=== PATIENT | female | born 1965 ===

== ENCOUNTER 2020-09-04 10:11 | Emergency (ER) | payer SELFPAY ==
--- NOTE | 2020-09-04 10:33 | EDM.PDOC ---
ED HPI GENERAL MEDICAL PROBLEM - General Chief Complaint: Genitourinary Problem Stated Complaint: POSSIBLE KIDNEY INFECTION Time Seen by Provider: 09/04/20 10:14 Source of Information: Reports: Patient History Limitations: Reports: No Limitations - History of Present Illness INITIAL COMMENTS - FREE TEXT/NARRATIVE: HISTORY AND PHYSICAL: History of present illness: Patient is a 55-year-old female who presents to the emergency room with complaints of right low back pain, dysuria and hematuria. She states yesterday she had some discomfort with voiding and noticed dull right-sided low back pain. She has had increased frequency and urgency over the past 24 hours. Prior to arrival she had hematuria. She has been trying to take [id number] supplements and cranberry juice without any relief. Patient denies any fever, chills, headache, change in vision, syncope or near syncope. Denies any chest pain, back pain, shortness of breath or cough. Denies any abdominal pain, nausea, vomiting, diarrhea, constipation. Denies any chance of , hysterectomy. Patient has been eating and drinking appropriately. Review of systems: As per history of present illness and below otherwise all systems reviewed and negative. Past medical history: As per history of present illness and as reviewed below otherwise noncontributory. Surgical history: As per history of present illness and as reviewed below otherwise noncontributory. Social history: See social history for further information Family history: As per history of present illness and as reviewed below otherwise noncontributory. Physical exam: General: Well developed and well nourished 55 year old female. Alert and orientated x 3. Nontoxic in appearance and in no acute distress. Vital signs are stable and have been reviewed by me. Nursing notes were reviewed. HEENT: Atraumatic, normocephalic, pupils equal and reactive bilaterally, negative for conjunctival pallor or scleral icterus, mucous membranes moist, trachea midline. No drooling or trismus noted. No meningeal signs. No hot potato voice noted. Abdomen: Soft, nondistended, nontender. Negative for masses or hepatosplenomegaly. Negative for costovertebral tenderness. Skin: Intact, warm, dry. No lesions or rashes noted. Extremities: Atraumatic, moves all extremities per self without difficulty or deficits. Neurovascular unremarkable. Neuro: Awake, alert, oriented. Motor and sensory unremarkable throughout. Exam nonfocal. Notes: Patient declined wanting any blood work at this time due to insurance/costs. I think this is reasonable. Patient's urine doesn't show a UTI. I have spoken with the patient/caregiver and discussed today's findings, in addition to providing specific details for plan of care. She does not want any labs or further evaluation of the dysuria. Reassessment at the time of disposition demonstrates that the patient is in no acute distress. BP is elevated, states she hasn't taken anything for her blood pressure in 3-4 years, but states she does plan on seeing/establishing with a PCP to get a "full check up". She does not want me to address her elevated BP readings, states "it could be all the stress I'm under too". The patient is stable for discharge, counseling was provided and we discussed in great detail signs and symptoms that would prompt them to return to the Emergency Department. Medication, follow up and supportive care measures were reviewed and discussed. Voices understanding and is agreeable to plan of care. Denies any further questions or concerns at this time. Diagnostics: UA Therapeutics: None Impression: Dysuria Plan: 1. Today your urine shows no evidence of UTI. Due to your symptoms, will give short course of abx. 2. Increase your oral fluids. Take the medication as prescribed. 3. We encourage you to follow up with your primary care provider and/or recommended specialist in the next few days for re-evaluation and further care/management. If your symptoms should worsen, new symptoms develop or any of the signs and symptoms we discussed should arise please return to the emergency room or call 911 (if needed). Definitive disposition and diagnosis as appropriate pending reevaluation and review of above. right flank Pain Score (Numeric/FACES): 5 - Related Data Allergies Allergy/AdvReac Type Severity Reaction Status Date / Time Sulfa (Sulfonamide Allergy Other Verified 09/04/20 10:36 Antibiotics) Home Meds: Home Meds Acetaminophen [Tylenol] mg PO ASDIRECTED PRN 09/04/20 [History] Ciprofloxacin HCl [Cipro] 500 mg PO BID 5 Days #10 tablet 09/04/20 [Rx] Multivitamin [Multivitamins] 1 each PO DAILY 09/04/20 [History] Phenazopyridine [Pyridium] 100 mg PO TID PRN 2 Days #6 tab 09/04/20 [Rx] Past Medical History Other Musculoskeletal History: Neck surgery Other Psychiatric History: unable to assess, poss OD and suicide attempt - Past Surgical History Other HEENT Surgeries/Procedures: Adnoidectomy ED ROS GENERAL - Review of Systems Review Of Systems: Comprehensive ROS is negative, except as noted in HPI. ED EXAM, RENAL/ - Physical Exam Exam: See Below (See dictation) Course - Vital Signs Last Recorded V/S: Last Vital Signs Temp 99.0 F 09/04/20 10:30 Pulse Resp 17 09/04/20 10:30 BP 186/102 H 09/04/20 10:30 Pulse Ox 98 09/04/20 10:30 - Orders/Labs/Meds Labs: Laboratory Tests 09/04/20 Range/Units 10:30 Urine Color YELLOW Urine Appearance CLEAR Urine pH 5.5 (5.0-8.0) Ur Specific [place] >= 1.030 (1.001-1.035) Urine Protein NEGATIVE (NEGATIVE) mg/dL Urine Glucose (UA) NEGATIVE (NEGATIVE) mg/dL Urine Ketones NEGATIVE (NEGATIVE) mg/dL Urine Occult Blood NEGATIVE (NEGATIVE) Urine Nitrite NEGATIVE (NEGATIVE) Urine Bilirubin NEGATIVE (NEGATIVE) Urine Urobilinogen 1.0 (<2.0) EU/dL Ur Leukocyte Esterase NEGATIVE (NEGATIVE) Departure - Departure Time of Disposition: 10:46 Disposition: Home, Self-Care 01 Clinical Impression: Dysuria - Discharge Information Prescriptions: Ciprofloxacin HCl [Cipro] 500 mg PO BID 5 Days #10 tablet Phenazopyridine [Pyridium] 100 mg PO TID PRN 2 Days #6 tab PRN Reason: Dysuria Instructions: Dysuria Referrals: PCP,None [Primary Care Provider] - Forms: ED Department Discharge Additional Instructions: The following information is given to patients seen in the emergency department who are being discharged to home. This information is to outline your options for follow-up care. We provide all patients seen in our emergency department with a follow-up referral. The need for follow-up, as well as the timing and circumstances, are variable depending upon the specifics of your emergency department visit. If you don't have a primary care physician on staff, we will provide you with a referral. We always advise you to contact your personal physician following an emergency department visit to inform them of the circumstance of the visit and for follow-up with them and/or the need for any referrals to a consulting specialist. The emergency department will also refer you to a specialist when appropriate. This referral assures that you have the opportunity for follow-up care with a specialist. All of these measure are taken in an effort to provide you with optimal care, which includes your follow-up. Under all circumstances we always encourage you to contact your private physician who remains a resource for coordinating your care. When calling for follow-up care, please make the office aware that this follow-up is from your recent emergency room visit. If for any reason you are refused follow-up, please contact the [facility] Emergency Department at and asked to speak to the emergency department charge nurse. [facility] [address] [place] [id number] [place] [id number] Thank you for choosing the [facility] emergency department in [place] for your medical needs today. It was a pleasure caring for you. Today you were seen in the emergency department for urinary symptoms. 1. Today your urine shows no evidence of UTI. Due to your symptoms, will give short course of abx. 2. Increase your oral fluids. Take the medication as prescribed. 3. We encourage you to follow up with your primary care provider and/or recommended specialist in the next few days for re-evaluation and further care/management. If your symptoms should worsen, new symptoms develop or any of the signs and symptoms we discussed should arise please return to the emergency room or call 911 (if needed). Sepsis Event Note (ED) - Focused Exam Vital Signs: Vital Signs Temp Resp BP Pulse Ox 09/04/20 10:30 99.0 F 17 186/102 H 98
[2020-09-04 10:56] VITALS: BP 165/83; PULSE 105
== END 2020-09-04 10:56 | disposition home or self-care (01) ==
LOC: MW.ED 10:11
DX: R30.0 Dysuria (principal); M54.5 Low back pain; R31.9 Hematuria, unspecified; Z88.2 Allergy status to sulfonamides
CPT/HCPCS: 81003; 99283

== ENCOUNTER 2025-08-26 10:48 | Emergency (ER) | payer SELFPAY ==
[2025-08-26] MEDS ORDERED: Sodium Chloride 0.9% 2.5 ML Syringe FLUSH PRN (11:32)
[2025-08-26] MEDS ORDERED: Sodium Chloride 0.9% 10 ML Syringe FLUSH PRN (11:32)
[2025-08-26 11:54] LABS: BASOPHILS ABSOLUTE AUTO 0.05 K/uL (0.00-0.20); BASOPHILS PERCENT AUTO 0.5 % (0.0-1.0); EOSINOPHILS ABSOLUTE AUTO 0.41 K/uL (0.00-0.45); EOSINOPHILS PERCENT AUTO 4.5 % (0.0-6.0); IMMATURE GRAN ABSOLUTE AUTO 0.03 K/uL (0.00-0.05); IMMATURE GRAN PERCENT AUTO 0.3 % (0.0-0.4); LYMPHOCYTES ABSOLUTE AUTO 1.33 K/uL (1.00-4.80); LYMPHOCYTES PERCENT AUTO 14.5 % (24.0-44.0); MEAN PLATELET VOLUME 8.4 fL (9.4-12.3); MONOCYTES ABSOLUTE AUTO 0.61 K/uL (0.00-0.80); MONOCYTES PERCENT AUTO 6.7 % (0.0-8.0); NEUTROPHILS ABSOLUTE AUTO 6.74 K/uL (1.80-7.70); NEUTROPHILS PERCENT AUTO 73.5 % (41.0-71.0); NRBC ABSOLUTE 0.00 K/uL (0.00-0.02); NRBC PERCENT 0.0 /100WBC (0.0-0.2); PLATELET COUNT,PLT 340 K/uL (150-400); RED BLOOD CELL COUNT 3.98 M/uL (4.10-5.30); WHITE BLOOD CELL COUNT,WBC 9.17 K/uL (3.9-11.3)
[2025-08-26] MEDS: Labetalol 100 MG/20 ML MDV IVPUSH ONE (11:59)
[2025-08-26 12:20] LABS: A/G RATIO 0.9 (0.9-1.6); ALANINE AMINOTRANSFERASE,ALT 19.0 IU/L (14-63); ASPARTATE AMNIOTRANSFERASE,AST 17.0 IU/L (15-37); BILIRUBIN TOTAL 0.4 mg/dL (0.2-1.0); BLOOD UREA NITROGEN,BUN 17.0 mg/dL (7.0-18.0); CARBON DIOXIDE,CO2 26.8 mmol/L (21.0-32.0); CHLORIDE,CL 104.0 mmol/L (98-107); CREATININE 0.9 mg/dL (0.6-1.0); EST CRCL DRUG DOSING (CG) 52.36 mL/min; GLUCOSE RANDOM 103.0 mg/dL (74-106); POTASSIUM,K 4.0 mmol/L (3.5-5.1); PROTEIN TOTAL,TP 7.4 g/dL (6.4-8.2); SODIUM,NA 139.0 mmol/L (136-145)
[2025-08-26 12:32] LABS: ESTIMATED GFR 73.0 mL/min (>60)
[2025-08-26 14:12] VITALS: BP 167/88; PULSE 86
== END 2025-08-26 14:18 | disposition home or self-care (01) ==
LOC: MW.ED 10:48
DX: I10 Essential (primary) hypertension (principal); F17.210 Nicotine dependence, cigarettes, uncomplicated; Z88.2 Allergy status to sulfonamides
CPT/HCPCS: 36415; 80053; 85025; 96374; 99283; J1920; 99284